=== PATIENT | male | born 2000 | race Caucasian/White ===

== ENCOUNTER 2019-06-26 13:25 | Emergency (ER) | payer OTHER ==
[2019-06-26] MEDS ORDERED: LORazepam 2 MG/ML INJ IM STA (13:36)
--- NOTE | 2019-06-26 13:44 | ED ---
General Adult HPI - General Stated complaint: EPS eval Time Seen by Provider: 06/26/19 13:27 Source: patient, family, EMS, RN notes reviewed Mode of arrival: EMS Limitations: no limitations - History of Present Illness Initial comments: This a 18-year-old male presents emergency department with family secondary to unstable mood. Patient has severe autism and gets very fixated on things. Patient does have occasional this amounts of anger and aggressive behavior. Police and EMS had to come to the house at this time. Patient not suicidal homicidal. Skin does not want the patient to be admitted. They do feel that he needs to be calm down and they're requesting benzodiazepines at this time he used to be on them but they were discontinued. He has not harmed anybody. Rema jordyzari is very adamant about the patient being discharged and they have follow-up on Friday. - Related Data Home Medications Medication Instructions Recorded Confirmed ALPRAZolam [Xanax] 1 mg PO BID 07/25/14 06/11/16 OXcarbazepine [Trileptal] 1,200 mg PO QAM 10/05/14 06/11/16 Clobazam [Onfi] 10 mg PO BID 06/11/16 06/11/16 OXcarbazepine [Trileptal] 1,800 mg PO HS 06/11/16 06/11/16 Previous Rx's Medication Instructions Recorded LORazepam [Ativan] 1 mg PO TID 3 Days #9 tab 06/26/19 Allergies Allergy/AdvReac Type Severity Reaction Status Date / Time No Known Allergies Allergy Verified 06/26/19 13:42 Review of Systems ROS Statement: Those systems with pertinent positive or pertinent negative responses have been documented in the HPI. ROS Other: All systems not noted in ROS Statement are negative. Past Medical History Past Medical History: Seizure Disorder Additional Past Medical History / Comment(s): autism, has broken right should 07/2014 History of Any Multi-Drug Resistant Organisms: None Reported Past Surgical History: No Surgical Hx Reported Additional Past Surgical History / Comment(s): tubes in ears Past Psychological History: Anxiety Smoking Status: Never smoker Past Alcohol Use History: None Reported Past Drug Use History: None Reported General Exam General appearance: alert, in no apparent distress Head exam: Present: atraumatic, normocephalic, normal inspection Respiratory exam: Present: normal lung sounds bilaterally. Absent: respiratory distress, wheezes, rales, rhonchi, stridor Cardiovascular Exam: Present: regular rate, normal rhythm, normal heart sounds. Absent: systolic murmur, diastolic murmur, rubs, gallop, clicks Neurological exam: Present: alert Psychiatric exam: Present: agitated Skin exam: Present: warm, dry, intact, normal color. Absent: rash Medical Decision Making - Medical Decision Making 18-year-old male presented for psychiatric issues. Patient underlying mood disorder, autism and which she has an appointment on Friday. Mother father in the room who are guardians for the patient and state they absolutely did not want the patient admitted that they agreed to receiving Ativan elevated provided a couple tablets of Ativan to Friday they do feel comfortable taking him home at this time the understand the risk. This was discussed with psychiatric nurse at bedside who agree Disposition Clinical Impression: Autism, Mood disorder Disposition: HOME SELF-CARE Condition: Stable Instructions (If sedation given, give patient instructions): Autism Spectrum Disorder (DC) Additional Instructions: Please return to the Emergency Department if symptoms worsen or any other concerns. Prescriptions: LORazepam [Ativan] 1 mg PO TID 3 Days #9 tab Is patient prescribed a controlled substance at d/c from ED?: Yes When asked, does pt state using other controlled substances?: No If prescribed controlled substance>3 days was MAPS reviewed?: Prescribed <3 Days Referrals: Albaro Ayoub MD [Primary Care Provider] - 1-2 days Time of Disposition: 13:43
== END 2019-06-26 13:50 | disposition home or self-care (01) ==
LOC: EC 13:25
DX: F84.0 Autistic disorder (principal); F39 Unspecified mood [affective] disorder; G40.909 Epilepsy, unspecified, not intractable, without status epilepticus; F41.9 Anxiety disorder, unspecified; Z79.899 Other long term (current) drug therapy
CPT/HCPCS: 99284; 96372; J2060

== ENCOUNTER 2019-06-30 11:09 | Emergency (ER) | payer OTHER ==
[2019-06-30 11:24] VITALS: BP 144/84; PULSE 102; RESP 16; TEMP 98
[2019-06-30] MEDS ORDERED: LORazepam 1 MG TAB PO STA (11:52)
--- NOTE | 2019-06-30 11:52 | ED ---
Recheck HPI - General Chief Complaint: Recheck/Abnormal Lab/Rx Stated Complaint: mental health Time Seen by Provider: 06/30/19 11:34 Source: patient, RN notes reviewed, old records reviewed Mode of arrival: ambulatory Limitations: no limitations - History of Present Illness Initial Comments: This is a 18-year-old male the ER today. Presents today for evaluation of medication refill presents with father, patient is autistic unable to give history states patient is very agitated and aggressive needs medications for psychiatric treatment and behavior modification MD Complaint: medication refill request -: days(s) Returns Today for: request for prescription Context: ran out of medication Associated Symptoms: none Treatments Prior to Arrival: other - Related Data Home Medications Medication Instructions Recorded Confirmed ALPRAZolam [Xanax] 1 mg PO BID 07/25/14 06/30/19 OXcarbazepine [Trileptal] 1,200 mg PO QAM 10/05/14 06/30/19 Clobazam [Onfi] 15 mg PO BID 06/11/16 06/30/19 OXcarbazepine [Trileptal] 1,800 mg PO HS 06/11/16 06/30/19 Previous Rx's Medication Instructions Recorded LORazepam [Ativan] 2 mg PO TID 3 Days #9 tab 06/30/19 Allergies Allergy/AdvReac Type Severity Reaction Status Date / Time No Known Allergies Allergy Verified 06/30/19 11:41 Review of Systems ROS Statement: Those systems with pertinent positive or pertinent negative responses have been documented in the HPI. ROS Other: All systems not noted in ROS Statement are negative. Past Medical History Past Medical History: Seizure Disorder Additional Past Medical History / Comment(s): autism, has broken right should 07/2014 History of Any Multi-Drug Resistant Organisms: None Reported Past Surgical History: No Surgical Hx Reported Additional Past Surgical History / Comment(s): tubes in ears Past Psychological History: Anxiety Smoking Status: Never smoker Past Alcohol Use History: None Reported Past Drug Use History: None Reported General Exam Limitations: no limitations General appearance: alert, in no apparent distress Head exam: Present: atraumatic, normocephalic, normal inspection Eye exam: Present: normal appearance, PERRL, EOMI. Absent: scleral icterus, conjunctival injection, periorbital swelling ENT exam: Present: normal exam, mucous membranes moist Neck exam: Present: normal inspection. Absent: tenderness, meningismus, lymphadenopathy Respiratory exam: Present: normal lung sounds bilaterally. Absent: respiratory distress, wheezes, rales, rhonchi, stridor Cardiovascular Exam: Present: regular rate, normal rhythm, normal heart sounds. Absent: systolic murmur, diastolic murmur, rubs, gallop, clicks GI/Abdominal exam: Present: soft, normal bowel sounds. Absent: distended, tenderness, guarding, rebound, rigid Extremities exam: Present: normal inspection, full ROM, normal capillary refill. Absent: tenderness, pedal edema, joint swelling, calf tenderness Back exam: Present: normal inspection Neurological exam: Present: alert, oriented X3, CN II-XII intact Psychiatric exam: Present: normal affect, normal mood Skin exam: Present: warm, dry, intact, normal color. Absent: rash Course Vital Signs 06/30/19 11:18 Temperature 98.0 F Pulse Rate 102 H Respiratory 16 Rate Blood Pressure 144/84 O2 Sat by Pulse 99 Oximetry - Reevaluation(s) Reevaluation #1: Medical records reviewed Prior ER visit for similar complaint is reviewed Medical Decision Making - Medical Decision Making 18-year-old male the ER for evaluation patient resents today for evaluation regards to medicine refill, patient given refill here in the ER, will continue follow-up with primary care Disposition Clinical Impression: Encounter for medication refill, Autism, Mood disorder Disposition: HOME SELF-CARE Condition: Good Instructions (If sedation given, give patient instructions): Medicine Refill (ED) Prescriptions: LORazepam [Ativan] 2 mg PO TID 3 Days #9 tab Is patient prescribed a controlled substance at d/c from ED?: No Referrals: Jacob Muller MD [Primary Care Provider] - 1-2 days
== END 2019-06-30 11:53 | disposition home or self-care (01) ==
LOC: EC 11:09
DX: Z76.0 Encounter for issue of repeat prescription (principal); F84.0 Autistic disorder; F39 Unspecified mood [affective] disorder; F41.9 Anxiety disorder, unspecified; G40.909 Epilepsy, unspecified, not intractable, without status epilepticus; Z79.899 Other long term (current) drug therapy
CPT/HCPCS: 99282

== ENCOUNTER 2019-07-05 10:34 | Emergency (ER) | payer OTHER ==
[2019-07-05 10:46] VITALS: BP 141/55; PULSE 71; RESP 17; TEMP 98.1
[2019-07-05] MEDS ORDERED: LORazepam 2 MG/ML INJ IM STA (10:51)
--- NOTE | 2019-07-05 11:05 | ED ---
Recheck HPI - General Chief Complaint: Recheck/Abnormal Lab/Rx Stated Complaint: MED REFILL Time Seen by Provider: 07/05/19 10:52 Source: family Mode of arrival: ambulatory Limitations: altered mental status - History of Present Illness Initial Comments: Patient is a 18-year-old male, with past medical history of severe autism and mood disorder, presenting to the emergency Department with complaints of agitation. Patient's father states they are awaiting appointment with his regular physician for medication refill however in the meantime he is out of his Ativan and is starting to get agitated. Patient was in the ER 3 days ago for same complaint. Father has no other complaints at this time. Father denies fever, chills, chest pain, shortness of breath. Upon arrival to the ER, vital signs are stable. - Related Data Home Medications Medication Instructions Recorded Confirmed ALPRAZolam [Xanax] 1 mg PO BID 07/25/14 06/30/19 OXcarbazepine [Trileptal] 1,200 mg PO QAM 10/05/14 06/30/19 Clobazam [Onfi] 15 mg PO BID 06/11/16 06/30/19 OXcarbazepine [Trileptal] 1,800 mg PO HS 06/11/16 06/30/19 Previous Rx's Medication Instructions Recorded LORazepam [Ativan] 2 mg PO TID 3 Days #9 tab 07/05/19 Allergies Allergy/AdvReac Type Severity Reaction Status Date / Time No Known Allergies Allergy Verified 06/30/19 11:41 Review of Systems ROS Statement: Those systems with pertinent positive or pertinent negative responses have been documented in the HPI. ROS Other: All systems not noted in ROS Statement are negative. Past Medical History Past Medical History: Seizure Disorder Additional Past Medical History / Comment(s): autism, has broken right should 07/2014 History of Any Multi-Drug Resistant Organisms: None Reported Past Surgical History: No Surgical Hx Reported Additional Past Surgical History / Comment(s): tubes in ears Past Psychological History: Anxiety Smoking Status: Never smoker Past Alcohol Use History: None Reported Past Drug Use History: None Reported General Exam - General Exam Comments Initial Comments: GENERAL: Well-appearing, well-nourished and in no acute distress. HEAD: Atraumatic, normocephalic. EYES: Pupils equal round and reactive to light, extraocular movements intact, sclera anicteric, conjunctiva are normal. ENT: Nares patent, oropharynx clear without exudates. Moist mucous membranes. NECK: Normal range of motion, supple without lymphadenopathy or JVD. LUNGS: Breath sounds clear to auscultation bilaterally and equal. No wheezes rales or rhonchi. HEART: Regular rate and rhythm without murmurs, rubs or gallops. ABDOMEN: Soft, nontender, normoactive bowel sounds. No masses appreciated. : Deferred EXTREMITIES: Normal range of motion, no pitting or edema. No clubbing or cyanosis. PSYCH: Normal mood, autistic. SKIN: Warm, Dry, normal turgor, no rashes or lesions noted. Limitations: altered mental status Course Vital Signs 07/05/19 10:43 Temperature 98.1 F Pulse Rate 71 Respiratory 17 Rate Blood Pressure 141/55 O2 Sat by Pulse 96 Oximetry Medical Decision Making - Medical Decision Making Patient is a 18-year-old male with autism and mood disorder presenting for agitation. Patient's father is with him now and states they do have an appointment with their regular physician in a few weeks for medication refill however in the meantime he is on Ativan. Patient was in the ER 3 days ago for same complaint. Records are reviewed. Patient was given 2 g of Ativan IM. Patient was given a prescription for 3 days of Ativan. Patient will follow up with regular physician. Father is in agreement with this plan of care. Disposition Clinical Impression: Encounter for medication refill, Autism, Mood disorder Disposition: HOME SELF-CARE Condition: Stable Instructions (If sedation given, give patient instructions): Medicine Refill (ED) Additional Instructions: Please return to the Emergency Department if symptoms worsen or any other concerns. Prescriptions: LORazepam [Ativan] 2 mg PO TID 3 Days #9 tab Is patient prescribed a controlled substance at d/c from ED?: Yes When asked, does pt state using other controlled substances?: No If prescribed controlled substance>3 days was MAPS reviewed?: Prescribed <3 Days Referrals: Jacob Muller MD [Primary Care Provider] - 1-2 days
== END 2019-07-05 11:08 | disposition home or self-care (01) ==
LOC: EC 10:34
DX: F84.0 Autistic disorder (principal); F39 Unspecified mood [affective] disorder; R45.1 Restlessness and agitation; Z76.0 Encounter for issue of repeat prescription; G40.909 Epilepsy, unspecified, not intractable, without status epilepticus; F41.9 Anxiety disorder, unspecified; Z79.899 Other long term (current) drug therapy
CPT/HCPCS: 99281; 96372; J2060

== ENCOUNTER 2019-07-09 10:46 | Emergency (ER) | payer OTHER ==
[2019-07-09 10:56] VITALS: BP 105/60; PULSE 89; RESP 20; TEMP 98.7
[2019-07-09] MEDS ORDERED: LORazepam 1 MG TAB PO STA (11:06)
--- NOTE | 2019-07-09 11:16 | ED ---
Recheck HPI - General Chief Complaint: Recheck/Abnormal Lab/Rx Stated Complaint: Mental health Time Seen by Provider: 07/09/19 10:51 Source: patient, family, RN notes reviewed, old records reviewed Mode of arrival: ambulatory Limitations: no limitations - History of Present Illness Initial Comments: Patient is a 18-year-old male with a history of severe autism disorder and mood disorder. He presents emergency department today with parents for concern for medication refill. Patient reportedly has been having increased upper some behavior. Patient's parents are social workers, and states that they do not have the Patient hospitalized or seen by inpatient treatment. Patient has had just increased outburst and they've been managing this at home. As of recently they need help with medications such as Ativan. Patient has been to the emergency department every 3 days for refills for prescription for Ativan. Patient has half a pill of Ativan earlier today. Patient reportedly has a follow-up appointment with Dr. Muller on July 26. And has follow up with [facility] services. They plan to patient's house. Patient's parents report that he he thapa s not hurt himself or anybody else. Just sometimes there concerned that he could lash out and harm somebody. Patient has had no other physical complaints at this time. - Related Data Home Medications Medication Instructions Recorded Confirmed OXcarbazepine [Trileptal] 1,200 mg PO QAM 10/05/14 06/30/19 Clobazam [Onfi] 15 mg PO BID 06/11/16 06/30/19 OXcarbazepine [Trileptal] 1,800 mg PO HS 06/11/16 06/30/19 Clobazam [Onfi] 20 mg PO HS 07/09/19 07/09/19 Divalproex [Depakote] 500 mg PO HS 07/09/19 07/09/19 Divalproex [Depakote] 750 mg PO DAILY 07/09/19 07/09/19 Previous Rx's Medication Instructions Recorded LORazepam [Ativan] 2 mg PO TID 3 Days #9 tab 07/05/19 LORazepam [Ativan] 2 mg PO TID 3 Days #9 tab 07/09/19 Allergies Allergy/AdvReac Type Severity Reaction Status Date / Time No Known Allergies Allergy Verified 07/09/19 10:55 Review of Systems ROS Statement: Those systems with pertinent positive or pertinent negative responses have been documented in the HPI. ROS Other: All systems not noted in ROS Statement are negative. Past Medical History Past Medical History: Seizure Disorder Additional Past Medical History / Comment(s): autism, has broken right should 07/2014 History of Any Multi-Drug Resistant Organisms: None Reported Past Surgical History: No Surgical Hx Reported Additional Past Surgical History / Comment(s): tubes in ears Past Psychological History: Anxiety Smoking Status: Never smoker Past Alcohol Use History: None Reported Past Drug Use History: None Reported General Exam - General Exam Comments Initial Comments: Pleasant 18-year-old male. Patient appears in no acute distress at this time. Limitations: no limitations General appearance: alert Head exam: Present: atraumatic, normocephalic, normal inspection Eye exam: Present: normal appearance, PERRL, EOMI. Absent: scleral icterus, conjunctival injection, periorbital swelling ENT exam: Present: normal exam, mucous membranes moist Neck exam: Present: normal inspection. Absent: tenderness, meningismus, lymphadenopathy Respiratory exam: Present: normal lung sounds bilaterally. Absent: respiratory distress, wheezes, rales, rhonchi, stridor Cardiovascular Exam: Present: regular rate, normal rhythm, normal heart sounds. Absent: systolic murmur, diastolic murmur, rubs, gallop, clicks Neurological exam: Present: alert, oriented X3, CN II-XII intact Psychiatric exam: Present: normal affect, normal mood, other (Patient is somewhat fidgety and anxious, and agitated. He is calm when speaking to. He is watching TV shows on his Ipad. ) Skin exam: Present: warm, dry, intact, normal color. Absent: rash Course Vital Signs 07/09/19 10:53 Temperature 98.7 F Pulse Rate 89 Respiratory 20 Rate Blood Pressure 105/60 O2 Sat by Pulse 99 Oximetry Medical Decision Making - Medical Decision Making This is a 18-year-old male presents today for concern for medication refill for Ativan. Patient has been to emergency department 4 times, partially protruding on the prescriptions ran out. Patient reportedly has follow up with [facility] and psychiatrist upcoming on 8 the beginning of July. Family reports they're unable to get into psychiatry her primary until then. In the meantime Patient been coming to the ER for IM injections of Ativan. At this time Patient has no signs of acute agitation and is relatively comfortable in the room. Discussed the Patient is not in injection of Ativan but could offer a oral pill form. I discussed the Patient services need to be discussed with the psychiatrist Dr. Matute. Disposition Clinical Impression: Autism Disposition: HOME SELF-CARE Condition: Good Instructions (If sedation given, give patient instructions): Autism Spectrum Disorder (DC) Additional Instructions: Please use medication as discussed. Please follow up with family doctor if symptoms have not improved over the next two days. Please return to the emergency room if your symptoms increase or worsen or for any other concerns. Prescriptions: LORazepam [Ativan] 2 mg PO TID 3 Days #9 tab Is patient prescribed a controlled substance at d/c from ED?: Yes If prescribed controlled substance>3 days was MAPS reviewed?: Prescribed <3 Days If opioid is for acute pain is fill amount 7 days or less?: Yes If Rx opioid, was Start Talking consent form obtained?: Yes Referrals: Jacob Muller MD [Primary Care Provider] - 1-2 days Time of Disposition: 11:13
== END 2019-07-09 11:36 | disposition home or self-care (01) ==
LOC: EC 10:46
DX: F84.0 Autistic disorder (principal); G40.909 Epilepsy, unspecified, not intractable, without status epilepticus; F41.9 Anxiety disorder, unspecified; Z79.899 Other long term (current) drug therapy
CPT/HCPCS: 99284

== ENCOUNTER 2019-07-16 10:43 | Emergency (ER) | payer OTHER ==
[2019-07-16 10:57] VITALS: BP 124/93; PULSE 106; RESP 18; TEMP 100.3
[2019-07-16] MEDS ORDERED: LORazepam 1 MG TAB PO STA (12:27)
--- NOTE | 2019-07-16 12:38 | ED ---
Psych HPI - General Chief Complaint: Psychiatric Symptoms Stated Complaint: EPS Time Seen by Provider: 07/16/19 10:55 Source: patient Mode of arrival: ambulatory - History of Present Illness Initial Comments: The patient is a 18-year-old male with past medical history of autism presents emergency Department with reported aggressive outbreaks. Father is at bedside and provides the history. The patient is a long standing history of aggressive outbreaks. He has been on Ativan in the past. Her father states that the patient does well on this medication however there is appointment time when insurance didn't cover it. The family did move to the [facility] approximately year and a half. The patient has had behavioral disturbance disturbances since then. He reports that the patient will have to have a strict schedule illnesses compromised the patient will have uncontrollable emotional outbreaks. He states that over the past few months he has been forced to come into the emergency department for small prescription for Ativan. The patient will have insurance starting July 23. They have an appointment with him to see a psychiatrist on July 26. This will have been the patient's third time coming into the emergency department for medication request. Father is requesting 9 pills of Ativan 2 mg. They state that these this medication when necessary to calm the patient. Denies any recent illnesses. No blunt head trauma. Therefore that this has been the patient's constipation for the past year and a half. No acute changes. Patient's vitals show that he has a temp of 100.3. Therefore the patient has had no infectious signs. The patient does not complain of any pain. He has been eating and drinking without difficulty. No nasal congestion or cough. No difficulties with his bowel or bladder. The patient is never demonstrated any harmful behavior to himself or anyone else. There are no other alleviating, precipitating or modifying factors - Related Data Home Medications Medication Instructions Recorded Confirmed OXcarbazepine [Trileptal] 1,200 mg PO QAM 10/05/14 07/09/19 Clobazam [Onfi] 15 mg PO DAILY 06/11/16 07/09/19 OXcarbazepine [Trileptal] 1,800 mg PO HS 06/11/16 07/09/19 Clobazam [Onfi] 20 mg PO HS 07/09/19 07/09/19 Divalproex [Depakote] 500 mg PO HS 07/09/19 07/09/19 Divalproex [Depakote] 750 mg PO DAILY 07/09/19 07/09/19 Previous Rx's Medication Instructions Recorded LORazepam [Ativan] 2 mg PO TID 3 Days #9 tab 07/05/19 LORazepam [Ativan] 2 mg PO TID 3 Days #9 tab 07/09/19 LORazepam [Ativan] 2 mg PO TID PRN 3 Days #9 tab 07/16/19 Allergies Allergy/AdvReac Type Severity Reaction Status Date / Time No Known Allergies Allergy Verified 07/16/19 10:57 Review of Systems ROS Statement: Those systems with pertinent positive or pertinent negative responses have been documented in the HPI. ROS Other: All systems not noted in ROS Statement are negative. Past Medical History Past Medical History: Seizure Disorder Additional Past Medical History / Comment(s): autism, has broken right should 07/2014 History of Any Multi-Drug Resistant Organisms: None Reported Past Surgical History: No Surgical Hx Reported Additional Past Surgical History / Comment(s): tubes in ears Past Psychological History: Anxiety Smoking Status: Never smoker Past Alcohol Use History: None Reported Past Drug Use History: None Reported General Exam Limitations: no limitations Course Vital Signs 07/16/19 10:54 Temperature 100.3 F H Pulse Rate 106 H Respiratory 18 Rate Blood Pressure 124/93 O2 Sat by Pulse 98 Oximetry Medical Decision Making - Medical Decision Making Upon arrival the patient was placed into room 28. I did perform a thorough history and physical exam. I did retake the patient's temperature was 99.7 axillary. Family refused that the patient has any signs of infection. I did provided patient with a 2 mg dose of Ativan. I will supply the patient with a 3 day prescription for Ativan as well. Medication as prescribed. He is to follow-up with his psychiatrist on the fourth. If he has any new or worsening symptoms he should return to the emergency room. Family was comfortable with his discharge home. Disposition Clinical Impression: Autism, Mood disorder, Encounter for medication refill Disposition: HOME SELF-CARE Condition: Stable Additional Instructions: Please follow-up with your psychiatrist on the fourth. Return to the emergency room for any worsening symptoms Prescriptions: LORazepam [Ativan] 2 mg PO TID PRN 3 Days #9 tab PRN Reason: Anxiety Is patient prescribed a controlled substance at d/c from ED?: Yes When asked, does pt state using other controlled substances?: No If prescribed controlled substance>3 days was MAPS reviewed?: Prescribed <3 Days Referrals: Jacob Muller MD [Primary Care Provider] - 1-2 days Time of Disposition: 12:39
== END 2019-07-16 12:51 | disposition home or self-care (01) ==
LOC: EC 10:43
DX: F39 Unspecified mood [affective] disorder (principal); F84.0 Autistic disorder; Z76.0 Encounter for issue of repeat prescription; G40.909 Epilepsy, unspecified, not intractable, without status epilepticus; Z79.899 Other long term (current) drug therapy
CPT/HCPCS: 99284

== ENCOUNTER 2019-07-20 12:36 | Emergency (ER) | payer OTHER ==
[2019-07-20 12:54] VITALS: BP 126/87; PULSE 107; RESP 18; TEMP 97
[2019-07-20] MEDS ORDERED: LORazepam 2 MG/ML INJ IM STA (13:03)
--- NOTE | 2019-07-20 13:17 | ED ---
Recheck HPI - General Chief Complaint: Recheck/Abnormal Lab/Rx Stated Complaint: MED REFILL Time Seen by Provider: 07/20/19 12:50 Source: family Mode of arrival: ambulatory - History of Present Illness Initial Comments: Patient is a 18-year-old male presenting to the emergency department with his family for medication refill. Patient's father is at bedside and provides a history for patient. Patient has history of autism with previous aggressive behavior. Patient has been here on multiple occasions prior to this for same scenario. They are awaiting their new psychiatrist appointment on July 26. Patient takes 2 mg of Ativan. There are no other complaints today. They deny fever, chills, nausea, vomiting. Of note, there was concern for a possible infection along the index finger, finger nail. Mother states patient does pick at the finger often. Her complaints at this time. Upon arrival to ER, vital signs are stable. - Related Data Home Medications Medication Instructions Recorded Confirmed OXcarbazepine [Trileptal] 1,200 mg PO QAM 10/05/14 07/09/19 Clobazam [Onfi] 15 mg PO DAILY 06/11/16 07/09/19 OXcarbazepine [Trileptal] 1,800 mg PO HS 06/11/16 07/09/19 Clobazam [Onfi] 20 mg PO HS 07/09/19 07/09/19 Divalproex [Depakote] 500 mg PO HS 07/09/19 07/09/19 Divalproex [Depakote] 750 mg PO DAILY 07/09/19 07/09/19 Previous Rx's Medication Instructions Recorded LORazepam [Ativan] 2 mg PO TID 3 Days #9 tab 07/05/19 LORazepam [Ativan] 2 mg PO TID 3 Days #9 tab 07/09/19 LORazepam [Ativan] 2 mg PO TID PRN 3 Days #9 tab 07/20/19 Allergies Allergy/AdvReac Type Severity Reaction Status Date / Time No Known Allergies Allergy Verified 07/16/19 10:57 Review of Systems ROS Statement: Those systems with pertinent positive or pertinent negative responses have been documented in the HPI. ROS Other: All systems not noted in ROS Statement are negative. Past Medical History Past Medical History: Seizure Disorder Additional Past Medical History / Comment(s): autism, has broken right should 07/2014 History of Any Multi-Drug Resistant Organisms: None Reported Past Surgical History: No Surgical Hx Reported Additional Past Surgical History / Comment(s): tubes in ears Past Psychological History: Anxiety Smoking Status: Never smoker Past Alcohol Use History: None Reported Past Drug Use History: None Reported General Exam - General Exam Comments Initial Comments: GENERAL: Well-appearing, well-nourished and in no acute distress. HEAD: Atraumatic, normocephalic. EYES: Pupils equal round and reactive to light, extraocular movements intact, sclera anicteric, conjunctiva are normal. ENT: Nares patent, oropharynx clear without exudates. Moist mucous membranes. NECK: Normal range of motion, supple without lymphadenopathy or JVD. LUNGS: Breath sounds clear to auscultation bilaterally and equal. No wheezes rales or rhonchi. HEART: Regular rate and rhythm without murmurs, rubs or gallops. ABDOMEN: Soft, nontender, normoactive bowel sounds. No masses appreciated. EXTREMITIES: Normal range of motion, no pitting or edema. No clubbing or cyanosis. NEUROLOGICAL: Cranial nerves II through XII grossly intact. Normal speech, normal gait. PSYCH: Autism. Normal mood today. SKIN: Warm, Dry, normal turgor, no rashes or lesions noted. Course Vital Signs 07/20/19 12:51 Temperature 97.0 F L Pulse Rate 107 H Respiratory 18 Rate Blood Pressure 126/87 O2 Sat by Pulse 98 Oximetry Medical Decision Making - Medical Decision Making Patient is a 18-year-old male presenting for medication refill with his family. Father is at bedside. They are awaiting an appointment with her psychiatrist which is on July 26. They have been here previously for same complaint. Patient will be given 2 mg IM of Ativan and Ativan refill for 3 days. Patient is stable for discharge at this time. Exam is normal today. Vital signs normal. Patient will follow-up with psychiatrist as discussed. Family is in agreement with this plan of care. Return parameters were discussed with the family and they verbalized understanding. Case discussed with Dr. Cohn. Disposition Clinical Impression: Encounter for medication refill Disposition: HOME SELF-CARE Condition: Stable Instructions (If sedation given, give patient instructions): Medicine Refill (ED) Additional Instructions: Please return to the Emergency Department if symptoms worsen or any other concerns. Follow-up with psychiatry next week as discussed. Prescriptions: LORazepam [Ativan] 2 mg PO TID PRN 3 Days #9 tab PRN Reason: Anxiety Is patient prescribed a controlled substance at d/c from ED?: No Referrals: Jacob Muller MD [Primary Care Provider] - 1-2 days
== END 2019-07-20 13:23 | disposition home or self-care (01) ==
LOC: EC 12:36
DX: Z76.0 Encounter for issue of repeat prescription (principal); G40.909 Epilepsy, unspecified, not intractable, without status epilepticus; Z79.899 Other long term (current) drug therapy
CPT/HCPCS: 99281; J2060

== ENCOUNTER 2019-07-26 07:41 | Emergency (ER) | payer OTHER ==
[2019-07-26 07:58] VITALS: BP 124/78; PULSE 93; RESP 18; TEMP 98.9
--- NOTE | 2019-07-26 08:27 | ED ---
General Adult HPI - General Chief complaint: Recheck/Abnormal Lab/Rx Stated complaint: EPS injection Time Seen by Provider: 07/26/19 07:57 Source: family, RN notes reviewed Mode of arrival: ambulatory Limitations: altered mental status - History of Present Illness Initial comments: This a 18-year-old male presents with family for medication refill and b ehavioral issues. Patient has cognitive impairment, autism and which patient has been seen several times in emergency department for similar complaints. Family was scheduled see Dr. Muller today in which the presented to the appointment and Yohana refused to treat the patient stating that he needs to see urology for his behavioral problems. Patient has been recently started on Ativan which has been helping. Patient is 6 weeks out from psychiatric evaluation parents are adamant about the patient not being sedated, restrained and held in 3 W. He is not suicidal or homicidal - Related Data Home Medications Medication Instructions Recorded Confirmed OXcarbazepine [Trileptal] 1,200 mg PO QAM 10/05/14 07/26/19 Clobazam [Onfi] 15 mg PO DAILY 06/11/16 07/26/19 OXcarbazepine [Trileptal] 1,800 mg PO HS 06/11/16 07/26/19 Clobazam [Onfi] 20 mg PO HS 07/09/19 07/26/19 Divalproex [Depakote] 500 mg PO HS 07/09/19 07/26/19 Divalproex [Depakote] 750 mg PO DAILY 07/09/19 07/26/19 Previous Rx's Medication Instructions Recorded LORazepam [Ativan] 2 mg PO TID PRN 3 Days #9 tab 07/20/19 LORazepam [Ativan] 2 mg PO TID 3 Days #21 tab 07/26/19 Allergies Allergy/AdvReac Type Severity Reaction Status Date / Time No Known Allergies Allergy Verified 07/26/19 08:15 Review of Systems ROS Statement: Those systems with pertinent positive or pertinent negative responses have been documented in the HPI. ROS Other: All systems not noted in ROS Statement are negative. Past Medical History Past Medical History: Seizure Disorder Additional Past Medical History / Comment(s): autism, has broken right should 07/2014 History of Any Multi-Drug Resistant Organisms: None Reported Past Surgical History: No Surgical Hx Reported Additional Past Surgical History / Comment(s): tubes in ears Past Psychological History: Anxiety Smoking Status: Never smoker Past Alcohol Use History: None Reported Past Drug Use History: None Reported General Exam Limitations: altered mental status General appearance: alert, in no apparent distress Neck exam: Present: normal inspection. Absent: tenderness, meningismus, lymphadenopathy Respiratory exam: Present: normal lung sounds bilaterally. Absent: respiratory distress, wheezes, rales, rhonchi, stridor Cardiovascular Exam: Present: regular rate, normal rhythm, normal heart sounds. Absent: systolic murmur, diastolic murmur, rubs, gallop, clicks Course Vital Signs 07/26/19 07:54 Temperature 98.9 F Pulse Rate 93 Respiratory 18 Rate Blood Pressure 124/78 O2 Sat by Pulse 93 L Oximetry Medical Decision Making - Medical Decision Making I had a long discussion with the father in the room that he needs to be a long- term solution. Patient father stated that they attempted to follow-up PCP T for medications though there were refused. Did express my concerns that he needs to have closer follow-up with her to neurology, psychology or another primary care physician for medication refills states that several ER visits. He does understand my concerns I did recommend possible requests admission though he is concerned because that he be medicated, sedated. Disposition Clinical Impression: Autism, Mood disorder, Encounter for medication refill Disposition: HOME SELF-CARE Condition: Stable Instructions (If sedation given, give patient instructions): Mood Disorders (ED) Additional Instructions: Please return to the Emergency Department if symptoms worsen or any other concerns. Prescriptions: LORazepam [Ativan] 2 mg PO TID 3 Days #21 tab Is patient prescribed a controlled substance at d/c from ED?: Yes When asked, does pt state using other controlled substances?: No If prescribed controlled substance>3 days was MAPS reviewed?: Yes Referrals: None,Stated [Primary Care Provider] - 1-2 days Time of Disposition: 08:22
== END 2019-07-26 08:38 | disposition home or self-care (01) ==
LOC: SUPCPDRO 07:41 → EC 07:41
DX: F39 Unspecified mood [affective] disorder (principal); F84.0 Autistic disorder; Z76.0 Encounter for issue of repeat prescription; G40.909 Epilepsy, unspecified, not intractable, without status epilepticus; Z79.899 Other long term (current) drug therapy
CPT/HCPCS: 99283

== ENCOUNTER 2019-08-03 11:37 | Emergency (ER) | payer OTHER ==
[2019-08-03 12:04] VITALS: BP 129/82; PULSE 109; RESP 18; TEMP 97.9
[2019-08-03] MEDS ORDERED: LORazepam 2 MG/ML INJ IM STA (12:16)
--- NOTE | 2019-08-03 12:43 | ED ---
General Adult HPI - General Chief complaint: Recheck/Abnormal Lab/Rx Stated complaint: Med review Time Seen by Provider: 08/03/19 11:50 Source: patient, family, RN notes reviewed, old records reviewed Mode of arrival: ambulatory Limitations: no limitations - History of Present Illness Initial comments: This is a 18-year-old male who has a past medical history significant for autism. Patient comes with family today because he used to be on Ativan but he has moved to this area in the last month and is unable to find anyone to prescribe him Ativan. Patient went to the primary medical care doctor and he refused. Patient went to her neurologist today and they refuse. Patient does have an appointment with [facility] but that is not for another month. Patient is getting agitated on an almost daily basis and he has been written multiple scripts for Ativan in the emergency department which stopped his agitation but he is out of that prescription at this time. Family is here hoping to get more Ativan and see if we can move the appointment with [facility] up to an earlier time. Patient himself continued snow history. Family states the patient is otherwise not acting abnormally said no fever chills has had no vomiting or diarrhea and is not having any problem breathing. There is been trauma. - Related Data Home Medications Medication Instructions Recorded Confirmed OXcarbazepine [Trileptal] 1,200 mg PO QAM 10/05/14 07/26/19 Clobazam [Onfi] 15 mg PO DAILY 06/11/16 07/26/19 OXcarbazepine [Trileptal] 1,800 mg PO HS 06/11/16 07/26/19 Clobazam [Onfi] 20 mg PO HS 07/09/19 07/26/19 Divalproex [Depakote] 500 mg PO HS 07/09/19 07/26/19 Divalproex [Depakote] 750 mg PO DAILY 07/09/19 07/26/19 Previous Rx's Medication Instructions Recorded LORazepam [Ativan] 2 mg PO TID PRN 3 Days #9 tab 07/20/19 LORazepam [Ativan] 2 mg PO TID 3 Days #21 tab 07/26/19 Allergies Allergy/AdvReac Type Severity Reaction Status Date / Time No Known Allergies Allergy Verified 08/03/19 11:46 Review of Systems ROS Statement: Those systems with pertinent positive or pertinent negative responses have been documented in the HPI. ROS Other: All systems not noted in ROS Statement are negative. Past Medical History Past Medical History: Seizure Disorder Additional Past Medical History / Comment(s): autism, has broken right should 07/2014 History of Any Multi-Drug Resistant Organisms: None Reported Past Surgical History: No Surgical Hx Reported Additional Past Surgical History / Comment(s): tubes in ears Past Psychological History: Anxiety Smoking Status: Never smoker Past Alcohol Use History: None Reported Past Drug Use History: None Reported General Exam - General Exam Comments Initial Comments: GENERAL: Patient is well-developed and well-nourished. Patient is nontoxic and well- hydrated and is in no acute distress. EYES: The sclera were anicteric and conjunctiva were pink and moist. Extraocular movements were intact and pupils were equal round and reactive to light. Eyelids were unremarkable. PULMONARY: Unlabored respirations. Good breath sounds bilaterally. No audible rales rhonchi or wheezing was noted. CARDIOVASCULAR: There is a regular rate and rhythm without any murmurs gallops or rubs. SKIN: Skin is clear with no lesions or rashes and otherwise unremarkable. NEUROLOGIC: Patient is alert and oriented at his baseline according to dad. Cranial nerves II through XII are grossly intact. Motor and sensory are also intact. Normal speech, volume and content. Symmetrical smile. MUSCULOSKELETAL: Normal extremities with adequate strength and full range of motion. No lower extremity swelling or edema. No calf tenderness. LYMPHATICS: No significant lymphadenopathy is noted PSYCHIATRIC: Unable to assess since patient answers no questions he is significantly autistic Limitations: no limitations Course Vital Signs 08/03/19 11:46 Temperature 97.9 F Pulse Rate 109 H Respiratory 18 Rate Blood Pressure 129/82 O2 Sat by Pulse 97 Oximetry Medical Decision Making - Medical Decision Making Father would not allow us to draw blood and sent the patient out to the car. Father was informed that if he sent the patient to the car he would be no Ativan prescription given any sent the patient to the car anyhow. Disposition Clinical Impression: Anxiety Disposition: HOME SELF-CARE Condition: Good Instructions (If sedation given, give patient instructions): Anxiety (ED) Is patient prescribed a controlled substance at d/c from ED?: No Referrals: None,Stated [Primary Care Provider] - 1-2 days Time of Disposition: 12:46
== END 2019-08-03 12:49 | disposition home or self-care (01) ==
LOC: EC 11:37
DX: F41.9 Anxiety disorder, unspecified (principal); F84.0 Autistic disorder; G40.909 Epilepsy, unspecified, not intractable, without status epilepticus; Z79.899 Other long term (current) drug therapy
CPT/HCPCS: 99285; 96372; J2060

== ENCOUNTER 2019-10-06 11:41 | Emergency (ER) | payer OTHER ==
[2019-10-06 11:52] VITALS: BP 127/68; PULSE 112; TEMP 98.1
[2019-10-06] MEDS ORDERED: KETAMINE 50 MG/ML 10 ML VIAL IM ONE (12:04)
--- NOTE | 2019-10-06 12:05 | ED ---
General Adult HPI - General Chief complaint: Psychiatric Symptoms Stated complaint: Mental health Time Seen by Provider: 10/06/19 11:55 Source: family, RN notes reviewed Mode of arrival: ambulatory - History of Present Illness Initial comments: Patient is a 19-year-old male with severe autism. Patient has been more aggressive at home lately and medications are not working as well. Patient has limited Ativan. They were able to give him one Ativan today which helped just a little bit. Patient has had similar symptoms previously and father states the ketamine works very well. Father would like patient evaluated for consideration of admission and medication change. Patient unable to offer much significant history. - Related Data Home Medications Medication Instructions Recorded Confirmed OXcarbazepine [Trileptal] 1,200 mg PO QAM 10/05/14 10/06/19 Clobazam [Onfi] 15 mg PO DAILY 06/11/16 10/06/19 OXcarbazepine [Trileptal] 1,800 mg PO HS 06/11/16 10/06/19 Clobazam [Onfi] 20 mg PO HS 07/09/19 10/06/19 Divalproex [Depakote] 500 mg PO HS 07/09/19 10/06/19 Divalproex [Depakote] 750 mg PO DAILY 07/09/19 10/06/19 ARIPiprazole [Abilify] 5 mg PO HS 10/06/19 10/06/19 clonazePAM [KlonoPIN] 0.5 mg PO BID 10/06/19 10/06/19 Allergies Allergy/AdvReac Type Severity Reaction Status Date / Time No Known Allergies Allergy Verified 10/06/19 12:09 Review of Systems ROS Statement: Those systems with pertinent positive or pertinent negative responses have been documented in the HPI. ROS Other: All systems not noted in ROS Statement are negative. Limitations: ROS unobtainable due to patients medical condition Past Medical History Past Medical History: Seizure Disorder Additional Past Medical History / Comment(s): autism, has broken right should 07/2014 History of Any Multi-Drug Resistant Organisms: None Reported Past Surgical History: No Surgical Hx Reported Additional Past Surgical History / Comment(s): tubes in ears Past Psychological History: Anxiety Smoking Status: Never smoker Past Alcohol Use History: None Reported Past Drug Use History: None Reported General Exam Limitations: physical limitation General appearance: alert Head exam: Present: atraumatic Eye exam: Present: normal appearance Respiratory exam: Present: normal lung sounds bilaterally Cardiovascular Exam: Present: regular rate, normal rhythm GI/Abdominal exam: Present: soft. Absent: tenderness Extremities exam: Present: normal inspection Neurological exam: Present: normal gait Psychiatric exam: Present: agitated, anxious Skin exam: Present: normal color Course Vital Signs 10/06/19 10/06/19 11:50 13:00 Temperature 98.1 F Pulse Rate 112 H Respiratory 19 16 Rate Blood Pressure 127/68 O2 Sat by Pulse 99 Oximetry - Reevaluation(s) Reevaluation #1: 10/06/19 12:50 reevaluated following ketamine. Medical Decision Making - Medical Decision Making Patient seen by mental health services with plan for discharge. Patient also has follow-up scheduled. Discharge they did make medication recommendations of increasing Abilify - Lab Data Lab Results 10/06/19 10/06/19 Range/Units 12:39 12:58 Urine Opiates Screen Not Detected (NotDetected) Ur Oxycodone Screen Not Detected (NotDetected) Urine Methadone Screen Not Detected (NotDetected) Ur Propoxyphene Screen Not Detected (NotDetected) Ur Barbiturates Screen Not Detected (NotDetected) Valproic Acid 63.7 ug/mL U Tricyclic Antidepress Not Detected (NotDetected) Ur Phencyclidine Scrn Not Detected (NotDetected) Ur Amphetamines Screen Not Detected (NotDetected) U Methamphetamines Scrn Not Detected (NotDetected) U Benzodiazepines Scrn Detected H (NotDetected) Urine Cocaine Screen Not Detected (NotDetected) U Marijuana (THC) Screen Not Detected (NotDetected) Serum Alcohol <10 mg/dL Disposition Clinical Impression: Agitation Disposition: HOME SELF-CARE Condition: Stable Instructions (If sedation given, give patient instructions): Autism Spectrum Disorder (DC), Conduct Disorder (ED) Additional Instructions: Please follow-up with mental health services as directed. Please also follow-up to primary care physician in the next couple days for recheck. Abilify changes as directed. Return for worsening symptoms or other concerns. Is patient prescribed a controlled substance at d/c from ED?: No Referrals: Albaro Ayoub MD [Primary Care Provider] - 1-2 days Time of Disposition: 14:09
[2019-10-06] MEDS ORDERED: LORazepam 2 MG/ML INJ IV STA (12:49)
[2019-10-06] MEDS ORDERED: ZIPRASIDONE 20 MG VIAL IM STA (12:49)
[2019-10-06 13:09] LABS: Alcohol <10 mg/dL
[2019-10-06 13:14] LABS: Valproic Acid (Depakene) 63.7 ug/mL
[2019-10-06 13:18] VITALS: RESP 16
[2019-10-06 13:35] LABS: Amphetamine Screen,Urine Not Detected (NotDetected); Barbiturate Screen,Urine Not Detected (NotDetected); Benzodiazepines Screen,Urine Detected (NotDetected); Cocaine Screen,Urine Not Detected (NotDetected); Methadone Screen, Urine Not Detected (NotDetected); Opiate Screen,Urine Not Detected (NotDetected); Oxycodone Screen, Urine Not Detected (NotDetected); Phencyclidine Screen,Urine Not Detected (NotDetected); Tricyclic Antidepressant,Urine Not Detected (NotDetected); Urn Cannabinoid Scrn Not Detected (NotDetected)
[2019-10-06] MEDS ORDERED: ONDANSETRON ODT 4 MG TAB PO STA (13:51)
== END 2019-10-06 14:15 | disposition home or self-care (01) ==
LOC: EC 11:41
DX: R45.1 Restlessness and agitation (principal); G40.909 Epilepsy, unspecified, not intractable, without status epilepticus; F41.9 Anxiety disorder, unspecified; F84.0 Autistic disorder; Z79.899 Other long term (current) drug therapy
CPT/HCPCS: 36415; 80164; 80183; 80306; 99285; 96374; 96372 ×2; G0480; J2060; J3486; 80320

== ENCOUNTER → 2020-05-12 | Outpatient (CLI) | payer OTHER ==
[~2020-05-12] MED LIST: KETAMINE 50 MG/ML 10 ML VIAL ONE
--- NOTE | 2020-05-12 08:30 | P.PN ---
Progress Note - Text Progress Note Date: 05/12/20 This is 19 years old male, with a history of severe autism, and patient was referred to have blood drawn for diagnostic study, and we have to give ketamine IM in this way we will be able to get a blood taken for diagnostic study, 100 mg of ketamine intramuscular in the left deltoid muscle injected, after negative aspiration, and injection done under sterile technique, the patient tolerated the procedure well without any contributions, and after patient was sedated, then the block taken for diagnostic study as ordered by neurologist, it will be discharged home after the discharge criteria met
[2020-05-12 09:10] LABS: Basophils # (A) 0.1 k/uL (0-0.2); Basophils % (A) 1 %; Eosinophils # (A) 0.3 k/uL (0-0.7); Eosinophils % (A) 3 %; HCT 49.8 % (39.0-53.0); HGB 16.4 gm/dL (13.0-17.5); Lymphocytes # (A) 3.6 k/uL (1.0-4.8); Lymphocytes % (A) 47 %; MCH 30.1 pg (25.0-35.0); MCHC 32.8 g/dL (31.0-37.0); MCV 91.7 fL (80.0-100.0); Monocytes # (A) 0.7 k/uL (0-1.0); Monocytes % (A) 9 %; Neutrophils # (A) 2.9 k/uL (1.3-7.7); Neutrophils % (A) 38 %; Platelet Count 293 k/uL (150-450); RBC 5.44 m/uL (4.30-5.90); WBC 7.7 k/uL (3.8-10.6)
[2020-05-12 16:29] LABS: Albumin 4.3 g/dL (3.80-4.90); Albumin/Globulin Ratio 1.59 (1.60-3.17); Anion Gap 11.6 mmol/L (4.00-12.00); BUN/Creat Ratio 14.44 Ratio (12.00-20.00); Carbon Dioxide 27.4 mmol/L (21.6-31.8); Globulin 2.7 g/dL (1.6-3.3); Non-African American GFR(CKD) 121.7 (60.0-200.0); Potassium 3.5 mmol/L (3.5-5.5); Total Bilirubin 0.5 mg/dL (0.2-1.2)
[2020-05-12 17:27] LABS: Valproic Acid (Depakene) 67.2 ug/mL (50.0-100.0)
== END | disposition home or self-care (01) ==
LOC: LABWHC1 07:47
PROVIDERS: ATTEND Psychiatry & Neurology Neurology
DX: F84.0 Autistic disorder (principal); R56.9 Unspecified convulsions
CPT/HCPCS: 36415; 80053; 80164; 85025

== ENCOUNTER 2021-11-02 11:34 | Emergency (ER) | payer OTHER ==
[2021-11-02] MEDS ORDERED: LORazepam 2 MG/ML INJ IM STA (12:18)
[2021-11-02 12:22] VITALS: BP 137/42; PULSE 113; RESP 18; TEMP 99.3
[2021-11-02] MEDS ORDERED: ONDANSETRON 4 MG/2 ML VIAL IVP STA (12:24)
--- NOTE | 2021-11-02 12:26 | ED ---
General Adult HPI - General Chief complaint: Neuro Symptoms/Deficit Stated complaint: seizures Time Seen by Provider: 11/02/21 12:01 Source: family, RN notes reviewed Mode of arrival: ambulatory - History of Present Illness Initial comments: Patient is a pleasant 21-year-old male presenting to the emergency department with seizures. Patient has had 3 seizures in the last 19 hours each lasting up to 4-5 minutes. Patient also has had several episodes of vomiting. Patient has been constipated the last couple of weeks. They did start metformin that family is upset about. Patient is a very poor historian and offers no additional history. Patient does have severe autism and seizure history. Family states patient needs to be sedated prior to attempting any procedures or further investigation. - Related Data Home Medications Medication Instructions Recorded Confirmed OXcarbazepine [Trileptal] 1,200 mg PO DAILY 10/05/14 11/02/21 Clobazam [Onfi] 15 mg PO BID 06/11/16 11/02/21 OXcarbazepine [Trileptal] 1,800 mg PO HS 06/11/16 11/02/21 Divalproex Sodium [Depakote] 1,000 mg PO BID 06/26/20 11/02/21 ARIPiprazole [Abilify] 20 mg PO HS 11/02/21 11/02/21 Olanzapine/Samidorphan Malate 1 tab PO HS 11/02/21 11/02/21 [Lybalvi 5-10 mg Tablet] metFORMIN HCL 500 mg PO DIRECTED 11/02/21 11/02/21 Allergies Allergy/AdvReac Type Severity Reaction Status Date / Time No Known Allergies Allergy Verified 11/02/21 13:50 Review of Systems ROS Statement: Those systems with pertinent positive or pertinent negative responses have been documented in the HPI. ROS Other: All systems not noted in ROS Statement are negative. Constitutional: Denies: fever Eyes: Denies: eye pain ENT: Denies: ear pain Respiratory: Denies: cough Cardiovascular: Denies: chest pain Endocrine: Denies: fatigue Gastrointestinal: Reports: nausea, vomiting, constipation Genitourinary: Denies: dysuria Musculoskeletal: Denies: back pain Skin: Denies: rash Neurological: Denies: weakness Past Medical History Past Medical History: Seizure Disorder Additional Past Medical History / Comment(s): autism, has broken right should 07/2014 History of Any Multi-Drug Resistant Organisms: None Reported Past Surgical History: No Surgical Hx Reported Additional Past Surgical History / Comment(s): tubes in ears Past Psychological History: Anxiety Smoking Status: Never smoker Past Alcohol Use History: None Reported Past Drug Use History: None Reported General Exam Limitations: altered mental status General appearance: alert Head exam: Present: atraumatic, normocephalic Eye exam: Present: normal appearance ENT exam: Present: normal oropharynx Neck exam: Present: normal inspection. Absent: tenderness, meningismus Respiratory exam: Present: normal lung sounds bilaterally Cardiovascular Exam: Present: regular rate, normal rhythm GI/Abdominal exam: Present: soft. Absent: distended, tenderness Extremities exam: Present: normal inspection, full ROM Neurological exam: Present: alert. Absent: motor sensory deficit Psychiatric exam: Present: normal affect, normal mood Skin exam: Present: normal color Course Vital Signs 11/02/21 12:08 Temperature 99.3 F Pulse Rate 113 H Respiratory 18 Rate Blood Pressure 137/42 O2 Sat by Pulse 96 Oximetry Medical Decision Making - Medical Decision Making Patient reevaluated and resting comfortably in bed. Family updated. Family does request discharge home. They are receptive to additional dose of Ativan to take home. They will provide the additional Depakote at home and did not want to give it at this time. - Lab Data Result diagrams: 11/02/21 12:50 11/02/21 12:50 Lab Results 11/02/21 11/02/21 11/02/21 Range/Units 12:50 12:50 12:50 WBC 8.4 (3.8-10.6) k/uL RBC 5.01 (4.30-5.90) m/uL Hgb 15.8 (13.0-17.5) gm/dL Hct 45.1 (39.0-53.0) % MCV 90.0 (80.0-100.0) fL MCH 31.5 (25.0-35.0) pg MCHC 35.0 (31.0-37.0) g/dL RDW 12.5 (11.5-15.5) % Plt Count 309 (150-450) k/uL MPV 6.9 Neutrophils % 79 % Lymphocytes % 12 % Monocytes % 7 % Eosinophils % 1 % Basophils % 0 % Neutrophils # 6.6 (1.3-7.7) k/uL Lymphocytes # 1.0 (1.0-4.8) k/uL Monocytes # 0.6 (0-1.0) k/uL Eosinophils # 0.1 (0-0.7) k/uL Basophils # 0.0 (0-0.2) k/uL Sodium 131 L (137-145) mmol/L Potassium 4.2 (3.5-5.1) mmol/L Chloride 98 (98-107) mmol/L Carbon Dioxide 23 (22-30) mmol/L Anion Gap 10 mmol/L BUN 11 (9-20) mg/dL Creatinine 0.88 (0.66-1.25) mg/dL Est GFR (CKD-EPI)AfAm >90 (>60 ml/min/1.73 sqM) Est GFR (CKD-EPI)NonAf >90 (>60 ml/min/1.73 sqM) Glucose 104 H (74-99) mg/dL Calcium 10.1 (8.4-10.2) mg/dL Magnesium 2.1 (1.6-2.3) mg/dL Total Bilirubin 0.8 (0.2-1.3) mg/dL AST 49 (17-59) U/L ALT 44 (4-49) U/L Alkaline Phosphatase 74 (38-126) U/L Total Protein 8.6 H (6.3-8.2) g/dL Albumin 4.6 (3.5-5.0) g/dL Valproic Acid 39.6 ug/mL Coronavirus (PCR) (Not Detectd) 11/02/21 Range/Units 13:17 WBC (3.8-10.6) k/uL RBC (4.30-5.90) m/uL Hgb (13.0-17.5) gm/dL Hct (39.0-53.0) % MCV (80.0-100.0) fL MCH (25.0-35.0) pg MCHC (31.0-37.0) g/dL RDW (11.5-15.5) % Plt Count (150-450) k/uL MPV Neutrophils % % Lymphocytes % % Monocytes % % Eosinophils % % Basophils % % Neutrophils # (1.3-7.7) k/uL Lymphocytes # (1.0-4.8) k/uL Monocytes # (0-1.0) k/uL Eosinophils # (0-0.7) k/uL Basophils # (0-0.2) k/uL Sodium (137-145) mmol/L Potassium (3.5-5.1) mmol/L Chloride (98-107) mmol/L Carbon Dioxide (22-30) mmol/L Anion Gap mmol/L BUN (9-20) mg/dL Creatinine (0.66-1.25) mg/dL Est GFR (CKD-EPI)AfAm (>60 ml/min/1.73 sqM) Est GFR (CKD-EPI)NonAf (>60 ml/min/1.73 sqM) Glucose (74-99) mg/dL Calcium (8.4-10.2) mg/dL Magnesium (1.6-2.3) mg/dL Total Bilirubin (0.2-1.3) mg/dL AST (17-59) U/L ALT (4-49) U/L Alkaline Phosphatase (38-126) U/L Total Protein (6.3-8.2) g/dL Albumin (3.5-5.0) g/dL Valproic Acid ug/mL Coronavirus (PCR) Not Detected (Not Detectd) - Radiology Data Radiology results: image reviewed (Abdominal x-ray shows no acute process) Disposition Clinical Impression: Seizure Disposition: HOME SELF-CARE Condition: Stable Instructions (If sedation given, give patient instructions): Recurrent Seizures in Adults (ED) Additional Instructions: Ativan as needed. Please give additional dose of Depakote as soon as you get home. Please also give additional dose of Depakote tomorrow. Please have Depakote level rechecked next week. Please do follow-up with primary care physician in the next couple days for recheck. Return for recurrent seizures, prolonged seizures, worsening symptoms or any other concerns. Is patient prescribed a controlled substance at d/c from ED?: No Referrals: Albaro Ayoub MD [Primary Care Provider] - 1-2 days Time of Disposition: 15:00
--- NOTE | 2021-11-02 13:07 | XR ---
EXAMINATION TYPE: XR abdomen 1V DATE OF EXAM: 11/02/2021 COMPARISON: None INDICATION: Constipation TECHNIQUE: Single view abdomen upright view FINDINGS: Mammogram is limited due to motion artifact. There is a normal colonic bowel gas pattern. Psoas margins are normal. No organomegaly is present. IMPRESSION: 1. Unremarkable Abdomen 2. Some limitation due to motion artifact
[2021-11-02 13:25] LABS: Basophils % (A) 0 %; Eosinophils # (A) 0.1 k/uL (0-0.7); Eosinophils % (A) 1 %; HCT 45.1 % (39.0-53.0); HGB 15.8 gm/dL (13.0-17.5); Lymphocytes % (A) 12 %; MCH 31.5 pg (25.0-35.0); Mean Platelet Volume 6.9; Monocytes # (A) 0.6 k/uL (0-1.0); Monocytes % (A) 7 %; Neutrophils # (A) 6.6 k/uL (1.3-7.7); Neutrophils % (A) 79 %; Platelet Count 309 k/uL (150-450); RBC 5.01 m/uL (4.30-5.90); RDW 12.5 % (11.5-15.5); WBC 8.4 k/uL (3.8-10.6)
[2021-11-02 13:35] LABS: ALT 44 U/L (4-49); AST 49 U/L (17-59); African American GFR (CKD) >90 (>60 ml/min/1.73 sqM); Albumin 4.6 g/dL (3.5-5.0); Alkaline Phosphatase 74 U/L (38-126); Anion Gap 10 mmol/L; Blood Urea Nitrogen 11 mg/dL (9-20); Calcium 10.1 mg/dL (8.4-10.2); Carbon Dioxide 23 mmol/L (22-30); Chloride 98 mmol/L (98-107); Glucose 104 mg/dL (74-99); Non-African American GFR(CKD) >90 (>60 ml/min/1.73 sqM); Potassium 4.2 mmol/L (3.5-5.1); Sodium 131 mmol/L (137-145); Total Bilirubin 0.8 mg/dL (0.2-1.3); Total Protein 8.6 g/dL (6.3-8.2)
[2021-11-02 14:29] LABS: Valproic Acid (Depakene) 39.6 ug/mL
[2021-11-02] MEDS ORDERED: LORazepam 1 MG TAB PO STA (14:58)
== END 2021-11-02 15:10 | disposition home or self-care (01) ==
LOC: EC 11:34
DX: R56.9 Unspecified convulsions (principal); Z20.822 Contact with and (suspected) exposure to COVID-19; Z79.84 Long term (current) use of oral hypoglycemic drugs; F84.0 Autistic disorder; F41.9 Anxiety disorder, unspecified
CPT/HCPCS: 99285; 96374; 96372; 36415; 80164; 80053; 80183; 83735; 85025; 87635; 74018; J2060; J2405

== ENCOUNTER 2022-02-01 08:56 | Emergency (ER) | payer OTHER ==
[2022-02-01] MEDS ORDERED: KETAMINE 100 MG/ML IM STA (10:52)
--- NOTE | 2022-02-01 10:55 | ED ---
General Adult HPI - General Chief complaint: Neuro Symptoms/Deficit Stated complaint: Seizures,Lethargic Time Seen by Provider: 02/01/22 10:25 Source: family, RN notes reviewed, old records reviewed Mode of arrival: ambulatory Limitations: no limitations - History of Present Illness Initial comments: This is a 21-year-old male who presents to the emergency department with a history of autism. Patient is brought in today because ever since he started new medications in October he has been sleeping most of the day and he is had some right eye lid drooping and is also more ataxic and occasionally has some shaking episodes and staring episodes. The family went to see his neurologist a neurologist [facility] emergency department. Father states that he thinks it's the medications over the neurologist wants to rule out stroke and NPH. There is been no history of any fevers or chills. Patient has had no recent vomiting diarrhea - Related Data Home Medications Medication Instructions Recorded Confirmed OXcarbazepine [Trileptal] 1,200 mg PO DAILY 10/05/14 11/02/21 Clobazam [Onfi] 15 mg PO BID 06/11/16 11/02/21 OXcarbazepine [Trileptal] 1,800 mg PO HS 06/11/16 11/02/21 Divalproex Sodium [Depakote] 1,000 mg PO BID 06/26/20 11/02/21 ARIPiprazole [Abilify] 20 mg PO HS 11/02/21 11/02/21 Olanzapine/Samidorphan Malate 1 tab PO HS 11/02/21 11/02/21 [Lybalvi 5-10 mg Tablet] metFORMIN HCL 500 mg PO DIRECTED 11/02/21 11/02/21 Allergies Allergy/AdvReac Type Severity Reaction Status Date / Time No Known Allergies Allergy Verified 02/01/22 09:05 Review of Systems ROS Statement: Those systems with pertinent positive or pertinent negative responses have been documented in the HPI. ROS Other: All systems not noted in ROS Statement are negative. Past Medical History Past Medical History: Seizure Disorder Additional Past Medical History / Comment(s): autism, has broken right should 07/2014 History of Any Multi-Drug Resistant Organisms: None Reported Past Surgical History: No Surgical Hx Reported Additional Past Surgical History / Comment(s): tubes in ears Past Anesthesia/Blood Transfusion Reactions: No Reported Reaction Past Psychological History: Anxiety Smoking Status: Never smoker Past Alcohol Use History: None Reported Past Drug Use History: None Reported General Exam - General Exam Comments Initial Comments: GENERAL: Patient is well-developed and well-nourished. Patient is nontoxic and well- hydrated and is in no acute distress. ENT: Neck is soft and supple. No significant lymphadenopathy is noted. Neck has full range of motion without eliciting any pain. EYES: The sclera were anicteric and conjunctiva were pink and moist. Extraocular movements were intact and pupils were equal round and reactive to light. Eyelids were unremarkable. PULMONARY: Unlabored respirations. Good breath sounds bilaterally. No audible rales rho nchi or wheezing was noted. CARDIOVASCULAR: There is a regular rate and rhythm without any murmurs gallops or rubs. ABDOMEN: Soft and nontender with normal bowel sounds. SKIN: Skin is clear with no lesions or rashes and otherwise unremarkable. NEUROLOGIC: Patient is alert and oriented to his baseline according to parents. Patient is able to move all 4 extremities. Patient has some drooping of the right upper eyelid. MUSCULOSKELETAL: Normal extremities with adequate strength and full range of motion. LYMPHATICS: No significant lymphadenopathy is noted PSYCHIATRIC: Unable to assess patient is very agitated Limitations: no limitations Medical Decision Making - Medical Decision Making I was getting get a CAT scan some lab work and I ordered ketamine to sedate the patient however the father became impatient and decided to take the patient home and signed out AMA. - Lab Data Result diagrams: 02/01/22 11:03 02/01/22 11:03 Lab Results 02/01/22 02/01/22 Range/Units 11:03 11:03 WBC 6.2 (3.8-10.6) k/uL RBC 4.76 (4.30-5.90) m/uL Hgb 14.9 (13.0-17.5) gm/dL Hct 44.0 (39.0-53.0) % MCV 92.4 (80.0-100.0) fL MCH 31.3 (25.0-35.0) pg MCHC 33.8 (31.0-37.0) g/dL RDW 14.0 (11.5-15.5) % Plt Count 160 (150-450) k/uL MPV 7.5 Neutrophils % 45 % Lymphocytes % 41 % Monocytes % 9 % Eosinophils % 2 % Basophils % 0 % Neutrophils # 2.8 (1.3-7.7) k/uL Lymphocytes # 2.5 (1.0-4.8) k/uL Monocytes # 0.6 (0-1.0) k/uL Eosinophils # 0.1 (0-0.7) k/uL Basophils # 0.0 (0-0.2) k/uL Sodium 138 (137-145) mmol/L Potassium 3.9 (3.5-5.1) mmol/L Chloride 101 (98-107) mmol/L Carbon Dioxide 29 (22-30) mmol/L Anion Gap 8 mmol/L BUN 9 (9-20) mg/dL Creatinine 0.81 (0.66-1.25) mg/dL Est GFR (CKD-EPI)AfAm >90 (>60 ml/min/1.73 sqM) Est GFR (CKD-EPI)NonAf >90 (>60 ml/min/1.73 sqM) Glucose 85 (74-99) mg/dL Calcium 9.1 (8.4-10.2) mg/dL Magnesium 1.5 L (1.6-2.3) mg/dL Total Bilirubin 0.8 (0.2-1.3) mg/dL AST 59 (17-59) U/L ALT 25 (4-49) U/L Alkaline Phosphatase 77 (38-126) U/L Total Protein 7.2 (6.3-8.2) g/dL Albumin 3.8 (3.5-5.0) g/dL Valproic Acid 142.2 H* ug/mL Disposition Clinical Impression: Neurological abnormality Disposition: Left Against Medical Advice Referrals: Albaro Ayoub MD [Primary Care Provider] - 1-2 days Time of Disposition: 11:00
[2022-02-01 11:25] LABS: Basophils % (A) 0 %; Eosinophils # (A) 0.1 k/uL (0-0.7); Eosinophils % (A) 2 %; HGB 14.9 gm/dL (13.0-17.5); Lymphocytes # (A) 2.5 k/uL (1.0-4.8); Lymphocytes % (A) 41 %; MCH 31.3 pg (25.0-35.0); MCHC 33.8 g/dL (31.0-37.0); MCV 92.4 fL (80.0-100.0); Mean Platelet Volume 7.5; Monocytes # (A) 0.6 k/uL (0-1.0); Monocytes % (A) 9 %; Neutrophils # (A) 2.8 k/uL (1.3-7.7); Neutrophils % (A) 45 %; Platelet Count 160 k/uL (150-450); RBC 4.76 m/uL (4.30-5.90); WBC 6.2 k/uL (3.8-10.6)
[2022-02-01 11:30] LABS: ALT 25 U/L (4-49); African American GFR (CKD) >90 (>60 ml/min/1.73 sqM); Albumin 3.8 g/dL (3.5-5.0); Anion Gap 8 mmol/L; Blood Urea Nitrogen 9 mg/dL (9-20); Calcium 9.1 mg/dL (8.4-10.2); Carbon Dioxide 29 mmol/L (22-30); Chloride 101 mmol/L (98-107); Glucose 85 mg/dL (74-99); Magnesium 1.5 mg/dL (1.6-2.3); Non-African American GFR(CKD) >90 (>60 ml/min/1.73 sqM); Sodium 138 mmol/L (137-145); Total Bilirubin 0.8 mg/dL (0.2-1.3); Total Protein 7.2 g/dL (6.3-8.2)
[2022-02-01 11:38] LABS: AST 59 U/L (17-59); Alkaline Phosphatase 77 U/L (38-126); Potassium 3.9 mmol/L (3.5-5.1); Valproic Acid (Depakene) 142.2 ug/mL
== END 2022-02-01 11:21 | disposition left against medical advice (07) ==
LOC: EC 08:56
DX: R29.818 Other symptoms and signs involving the nervous system (principal); R56.9 Unspecified convulsions; R53.83 Other fatigue; Z53.29 Procedure and treatment not carried out because of patient's decision for other reasons
CPT/HCPCS: 36415; 80053; 80164; 80183; 83735; 85025; 99283